=== PATIENT | female | born 2000 | race Two or more races ===

== ENCOUNTER 2024-09-20 08:09 | Emergency (ER) | payer OTHER, SELFPAY ==
[2024-09-20 08:17] VITALS: BP 121/86; PULSE 100; RESP 18; TEMP 36.6; O2SAT 100; BMI 22.0
--- OUTSIDE RECORDS SUMMARY | 2024-09-20 08:48 | XMS_ITS | Encounter Summary ---
Author Organization [facility] Address [id number] [place] [phone] Care Team Providers Care Wharf Helper Name Role Phone Jocelynn Bland DO Primary Care Provider [phone] Reason for Visit * Reason Onset Date Comments URI 09/18/2024 Encounter Details Date Type Department Care Team (Late st Contact Info) Description 09/18/2024 Telephone Internal Medicine - [facility] [address] [place] [address] Jocelynn Bland DO [address] [place] [address] URI Social History Tobacco Use Types Packs/Day Years Used Date Smoking Tobacco: Never Smokeless Tobacco: Never Alcohol Use Standard Drinks/Week Comments No 0 (1 standard drink = 0.6 oz pur e alcohol) Sex and Gender Information Value Date Recorded Sex Assigned at Not on file Gender Identity Not on file Sexual Orientation Not on file Job Start Date Occupation Industry Not on file Not on file Not on file documented as of this encounter Progress Notes * Faviola Pereyra RN - 09/18/2024 2:32 PM EST Spoke to pt-reports of still not feeling well after going to [facility]. on sat 09/16/24 and testing + for the flu;treated with prednisone and inhaler which is not helping much. Pt went to an ext. u.c. today and was told to continue with otc meds like nyquil/dayquil and tyl./sinus medcn. Advised to do home care measures(increased fluid intake/adeq. nutrition-soft foods/rest /lukewarm saltwater gargles and cough drops. Refused an ER f/up as she wants an appt today/halima.Pt ended call abruptly. * Timo Baltazar - 09/18/2024 10:51 AM EST Patient call requires triage: Symptoms patient is presenting: uri symptoms, sore throat, head pressure How long has patient had these symptoms?: almost 1 week For ALL patients calling to schedule any appointment (routine, sick visit, follow up, consult, etc.) in the outpatient setting please ask the following questions: Do you have fever of higher than 101, sore throat with difficulty swallowing or severe shortness ofbreath? no If YES to any of these above symptoms, send a message to triage and do not book. Red dot. If no, an audio or video visit should be booked. Have you had close contact with someone with Coronavirus in the last 14 days? no Have you traveled abroad? no Have you traveled recently to another state outside of [place], [place], [place], [place], [place], [place], [place]? no o If yes, did you quarantine for 14 days or have a negative covid test? no If yes to any of the above, patient is not to be scheduled in office until after 14 day quarantine or negative covid test. If pain or injury related was it due to an accident at work or from a motor vehicle accident? If yes, date of accident/Injury: No If yes, gather 3rd democrat insurance information Third Libertarian Information: PCP: Jocelynn Bland DO Payor: [employer] HEALTH PLAN / Plan: [employer] MEDICAID / Product Type: *No Product type* / documented in this encounter Plan of Treatment Not on file documented as of this encounter Visit Diagnoses Not on filedocumented in this encounter Care Teams Wharf Helper Relationship Specialty Start Date End Date Jocelynn Bland DO [address] [facility] [place] [address] PCP - General 07/05/23 documented as of this encounter
--- OUTSIDE RECORDS SUMMARY | 2024-09-20 08:48 | XMS_ITS | Encounter Summary ---
Author Organization [facility] Address [id number] [place] [phone] Care Team Providers Care Top And Trim Worker Name Role Phone Jocelynn Bland DO Primary Care Provider Reason for Visit * Reason Onset Date Comments Flu Symptoms 09/15/2024 Encounter Details Date Type Department Care Team (Late st Contact Info) Description 09/15/2024 Telephone Internal Medicine - [facility] [address] [place] [address] Jocelynn Bland DO [address] [place] [address] Flu Symptoms Social History Tobacco Use Types Packs/Day Years [...] as of this encounter Progress Notes * Sherlyn Toney RN - 09/15/2024 9:41 AM EST RN called and patient c/o coughing for -3 days, I think I have a sinus infection. Patient deniesfevers, reports coughing up some phlegm. The patient was speaking full clear sentences on the phone and is unable to accommodate the apptoptions available. RN provided her the phone number to call and try and schedule and appt herself. * Willie Sams - 09/15/2024 9:23 AM EST Patient calling back please return call * Faviola Pereyra RN - 09/15/2024 9:05 AM EST Attempted to call few times pt with two tel nos;lvmtcb for phone triage. * Martha Dykes - 09/15/2024 8:56 AM EST Patient call requires triage: Symptoms patient is presenting: flu symptoms, body aches, difficutly breathing, nasal congestion, cough How long has patient had these symptoms?: 2 days For ALL patients calling to schedule any [...] recently to another state outside of [place], [place], [place], [place], [place], [place], [place]? no o If yes, did you quarantine [...] of accident/Injury: No If yes, gather 3rd republican insurance information Third Libertarian Information: not applicable PCP: Jocelynn Bland, DO Payor: [facility] / [facility]: [employer] MEDICAID / Product Type: *No Product type* / documented in this encounter Plan of Treatment Not on file documented as of this encounter Visit Diagnoses Not on filedocumented in this encounter Care Teams Top And Trim Worker Relationship Specialty Start Date End Date Jocelynn Bland DO [address] [place] [address] PCP - General 07/05/23 documented as of this encounter
--- OUTSIDE RECORDS SUMMARY | 2024-09-20 08:49 | XMS_ITS | Encounter Summary ---
Author Organization [facility] Address [address] [place] [phone] Phone Care Team Providers Care Winding Department Supervisor Name Role Phone Unavailable Primary Care Provider Unavailabl e Encounter Details Date Type Department Care Team (Late st Contact Info) Description 04/13/2014 Documentation [facility] Family [facility] [place] [address] Family Medicine, Physician [facility] [place], [place] [id number] Social History Tobacco Use Types Packs/Day Years Used Date Smoking Tobacco: Never Assessed Comments Unknown Sex and Gender Information Value Date Recorded Sex Assigned at Not on file Legal Sex Female 5:24 PM EDT Gender Identity Not on file Sexual Orientation Not on file documented as of this encounter Plan of Treatment Not on file documented as of this encounter Visit Diagnoses Not on filedocumented in this encounter
--- OUTSIDE RECORDS SUMMARY | 2024-09-20 08:49 | XMS_ITS | Clinical Summary ---
Author Organization [employer] Address [address] [facility] [address] [place] [address] Care Team Providers Care Business Practices Supervisor Name Role Phone Unavailable Primary Care Provider Unavailabl e Immunizations Name Administration Dates Next Due DTaP, 5 pertussis antigens 06/29/2002,,1998,08/12,1998 HPV, Quadrivalent 06/09/2012,03/25/2011,02/20/20 10 Hep A, ped/adol, 2 dose 12/23/2015,07/26/2014 Hep B, Adolescent or Pediatric 1998,1997,1998 Hib (PRP-T) 10/16/1999,199 9,1998,06/06 IPV 06/29/2002,200 0,1998,06/06 Influenza injectable quadriv alent IIV4 with preservative 07/26/2014 Influenza injectable quadriv alent preservative free 07/23/2016,04/04/2015 Influenza live intranasal qu adrivalent LIAV4 05/09/2013 Influenza, IIV3, injectable 08/10/2008,0 05/11/2007,07/03/2005,07/09 Influenza, Split (incl. cristiano fied surface antigen) 06/09/2012 MMR 06/29/2002,04/03/1999 Meningococcal MCV4P [id number]-135 12/23/2015,02/20/20 10 Moderna Covid-19 Vaccine 12+ 03/18/2022,12/06/19 21,11/07/2020 Moderna Covid-19 Vaccine 6+ Bivalent 10/06/2022 Tdap 01/20/2021,02/19/2010 Varicella 08/10/2008,04/03/1999 Social History Tobacco Use Types Packs/Day Years Used Date Smoking Tobacco: Never Assessed Comments Unknown Sex and Gender Information Value Date Recorded Sex Assigned at Female 10/06/2022 5:11 PM EST Legal Sex Female 5:04 PM EST Gender Identity Female 10/06/2022 5:11 PM EST Sexual Orientation Straight 10/06/2022 5: 11 PM EST Plan of Treatment Health Maintenance Due Date Last Done Comments Depression Screening 1998 HIV Screening 1998 Lipid Panel 1998 SDOH Screening 1998 Alcohol/Substance Use Screening 2010 Tobacco Screening 2010 Family Planning (PISQ) 2013 Hepatitis C Screening 2016 Pap Smear 2019 COVID-19 Vaccine ( season) 2024 10/06/2022, 03/18/2022, 12/05/2020, Additional history exists Influenza Vaccine (#1) 2024 6, 04/04/2015, 07/26/2014, Additional history exists DTaP/Tdap/Td Vaccines (8 - Td or Tdap) 01/20/2031 01/20/2021, 02/19/2010, 06/29/2002, Additional history exists Zoster Vaccines (1 of 2) 2048 RSV Patients and Patients Aged 60 years or older (1 - 1-dose 75+ series) 2073 Hepatitis B Vaccines Completed 1998, 1998, 1998 HIB Vaccines Completed 10/16/1999, 08/1998, 1998, Additional history exists IPV Vaccines Completed 06/29/2002, 09/1999, 1998, Additional history exists HPV Vaccines Completed 06/09/2012, 03/16, 02/19/2010 Hepatitis A Vaccines Completed 12/23/2015, 07/26/20 14 Meningococcal Vaccine Completed 12/23/2015, 010 Pneumococcal Vaccine: Pediatrics (0 to 5 Years) and At-Risk Patients (6 to 49) Years) Aged Out No longer eligible based on patient's age to complete this topic RSV under 20 months Aged Out No longe r eligible based on patient's age to complete this topic Rotavirus Vaccines Aged Out No longer eligible based on patient's age to complete this topic Insurance [facility]
--- OUTSIDE RECORDS SUMMARY | 2024-09-20 08:49 | XMS_ITS | Clinical Summary ---
Author Organization [facility] Address [address] [place] [phone] Phone Care Team Providers Care Is Consultant Name Role Phone Unavailable Primary Care Provider Unavailabl e Allergies No known active allergies Medications loratadine (CLARITIN) 10 MG tablet Take by mouth. 7 Active fluticasone (FLONASE ALLERGY RELIEF) 50 MCG/ACT nasal spray FLONASE ALLERGY RELIEF; spray 1 - 2 spray by intranasal route every day in each nostril as needed; 50 MCG/ACTUATION; 01/28/2017; Active 7 Active levothyroxine 88 MCG tablet Take 88 mcg by mouth once daily. 11 7 Active OLOPATADINE 0.1 % ophthalmic solutionIndication s:Allergic conjunctivitis of right eye ADMINISTER 1 DROP INTO BOTH EYES 2 (TWO) TIMES A DAY. 5 mL 8 Active loratadine 10 MG tablet 1 tablet by mouth once a day as needed Active CRYSELLE-28 0.3-30 MG-MCG per tablet Take 1 tablet by mouth once daily. 3 8 Active Active Problems Problem Noted Date Diagnosed Date Refused influenza vaccine 07/04/2018 Overview (07/04/2018): Declined: 07/04/18 Assessment & Plan (07/04/2018 2:20 PM EST): Discussed & info given on how deadly 2016 flu season was. Family and /or patient still refused vaccine today Family will return for nurse visit if wishing vaccine Palpitations 07/01/2018 Overview (07/01/2018): Saw cardiology in 2016 and had normal haltor monitor. High risk heterosexual behavior 04/11/2014 Overview (01/18/2018): + GC/Chlamydia 03/2014. HIV neg. Multiple SA partners. 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 Refer to Endo. Started synthyroid 05/2013. Pharmacy review 07/2014 shows inconsistant use of synthyroid - can got 2-3 months btw 30 day supply of meds Assessment & Plan (07/01/2018 1:53 PM EST): Vickie reports that she is now taking her thyroid medication 88mcg 1x per day just for the past week. She last saw endocrine over a year ago and did take her medication - 7 pills one time per week. Will check TSH and FT4 today as well as labs to look for anemia and diabetes. Immunizations Name Administration Dates Next Due DTaP 5 06/29/2002, 0,1998,08/12,1998 HPV, Quadrivalent 06/09/2012,03/25/2011,02/20/20 10 Hep A, ped/adol 12/23/2015,07/26/2014 Hep B, ped/adol 1998,1998,1998 Hib (PRP-T) 10/16/1999, 9,1998,06/06 IPV 06/29/2002, 0,1998,06/06 Influenza Split 06/09/2012 Influenza, injectable, quadrivalent 07/26/2014 Influenza, injectable, quadr ivalent, preservative free 07/23/2016,04/04/2015 Influenza, injectable, trivalent 008,05/11/2007,07/03/2005,07/09 Influenza, intranasal, quadrivalent 05/09/2013 MMR 06/29/2002,04/03/1999 Meningococcal Conj (Menactra) MCV4P 12/23/2015,0 02/19/2010 Tdap 02/19/2010 Varicella 08/10/2008,04/03/1999 Family History Medical History Relation Name Comments Diabetes Father Diabetes Maternal Grandmother Diabetes Mother's Sister Diabetes Paternal Grandmother Relation Name Status Comments Father Father: Asthma Maternal Grandmother Mother Mother: Migrain es, Elevated Cholesterol, Asthma Mother's Sister Other Family history of Diabetes mellitus, Family history of Hyperlipidemia Paternal Grandmother Sister 1 Sister: Asthma, Down Syndrome, down syndrome Sister 2 Alive Sister: Asthma, Down Syndrome, down syndrome Sister 3 Sister: Asthma, Down Syndrome, down syndrome Social History Tobacco Use Types Packs/Day Years Used Date Smoking Tobacco: Never Smokeless Tobacco: Never Comments:Never smoker Alcohol Use Standard Drinks/Week Comments No 0 (1 standard drink = 0.6 oz pur e alcohol) Comments Unknown Sex and Gender Information Value Date Recorded Sex Assigned at Not on file Legal Sex Female 5:24 PM EDT Gender Identity Not on file Sexual Orientation Not on file Last Filed Vital Signs Vital Sign Reading Time Taken Comments Blood Pressure 114/73 08/11/2018 2:37 PM EST Pulse 81 08/11/2018 2:37 PM EST Temperature 36.7 ??C (98.1 ??F) 08/11/2018 2:37 PM ES T Respiratory Rate - - Oxygen Saturation - - Inhaled Oxygen Concentration - - Weight 91.6 kg (202 lb) 08/11/2018 2:37 PM EST Height 159.4 cm (5' 2.75 ) 07/01/2018 1:16 PM ES T Body Mass Index 36.07 07/01/2018 1:16 PM EST Plan of Treatment Health Maintenance Due Date Last Done Comments Consider Men B Vaccine (1 of 2 - Bexsero 2-dose series) 2014 DTaP,Tdap,and Td Vaccines (7 - Td or Tdap) 02/20/2020 02/19/2010, 06/29/2002, 10/16/1999, Additional history exists Influenza Vaccines (#1) 2024 07/23/20 16, 04/04/2015, 07/26/2014, Additional history exists COVID-19 Vaccine ( season) 2024 Hepatitis B Vaccines Completed 1998, 1998, 1998 HIB Vaccines Completed 10/16/1999, 08/1998, 1998, Additional history exists IPV Vaccines Completed 06/29/2002, 09/1999, 1998, Additional history exists MMR Vaccines Completed 06/29/2002, 04/03/1999 Varicella Vaccines Completed 08/10/2008, 04/03/1999 HPV Vaccines Completed 06/09/2012, 03/16, 02/19/2010 Hepatitis A Vaccines Completed 12/23/2015, 07/26/20 14 Meningococcal Vaccine Completed 12/23/2015, 010 Men B Vaccine Aged Out No longer elig ible based on patient's age to complete this topic Pneumococcal Vaccine Aged Out No long er eligible based on patient's age to complete this topic Procedures * Due to [place] [employer] law, this organization might not be sharing sensitive test results. Procedure Name Priority Date/Time Associated Diagnosis Comments CHLAMYDIA AND GONORRHEA, AMPLIFIED Routine 07/04/2018 2:28 PM EST Vaginal discharge from Last 3 Months or Most Recently Relevant to Health Maintenance Results * Due to [place] [employer] law, this organization might not be sharing sensitive test results. * Chlamydia and Gonorrhoea, Amplified (07/04/2018 2:28 PM EST) Chlamydia Trachomatis, DNA Probe NEGATIVE (NEG) [facility] Comment: No Chlamydia Trachomatis RNA detected in this patient's sample ? (REFERENCE RANGE/NORMAL VALUE: NOT DETECTED) ? Note: This test uses fbi sharpshooter- mediated amplification method to detect rRNA from C. Trachomatis URINE GC AMP PROBE NEGATIVE (NEG) [facility] Comment: No Neisseria Gonorrhoeae RNA detected in this patient's sample ? (REFERENCE RANGE/NORMAL VALUE: NOT DETECTED) ? NOTE: This test uses fbi sharpshooter-mediated amplification method to detect rRNA from N.Gonorrhoeae. A negative result does not preclude infection. In the case of a negative urine result, testing of an endocervical(female) or urethral (male) specimen is recommended if there is high clinical suspicion of infection. Due to very high sensitivity of Nucleic Acid Amplification Test, false positive results may occur. Therefore, specimen handling is extremely important. In patients in whom the disease is unlikely, additional sample for testing should be considered after an initial positive result. The performance characteristics of this test have not been evaluated in children. The Aptima Combo2 assay is not intended for the evaluation of suspected sexual abuse or for other medico-legal indications. The ordering provider should assess if the patient had consensual sex without risk of sexual abuse. Consult the [facility] if needed. Contact phone number . Therapeutic failure or success cannot be determined with the Aptima Combo2 assay since nucleic acid may persist following appropriate antimicrobial therapy. The Centers for Disease Control and Prevention (CDC) recommends confirmatory retesting using culture or a different nucleic acid amplification test when positive results occur, if indicated. Testing performed or reported by [facility], a Service of [facility], [address] [place] [address] [place] [address] CLIA [id number] Yvette Roy MD, Agriculture Teacher 07/04/2018 2:28 PM EST 07/04/2018 9:34 PM EST us Sue Stokes MD LAB MICROBIOLOGY - GENERAL ORDER ION Final Result [facility] from Last 3 Months or Most Recently Relevant to Health Maintenance
--- OUTSIDE RECORDS SUMMARY | 2024-09-20 08:49 | XMS_ITS | Encounter Summary ---
Author Organization [facility] Address [address] [place] [phone] Phone Care Team Providers Care Order Dispatcher Name Role Phone Unavailable Primary Care Provider Unavailabl e Encounter Details Date Type Department Care Team (Late st Contact Info) Description 04/17/2014 Documentation [facility] [place] [address] Family Medicine, Phys[facility] [place], [place] [id number] Social History Tobacco Use Types Packs/Day Years [...]
--- OUTSIDE RECORDS SUMMARY | 2024-09-20 08:49 | XMS_ITS | Encounter Summary ---
Author Organization [facility] Address [address] [place] [phone] Phone Care Team Providers Care Extruder Operator Helper Name Role Phone Unavailable Primary Care Provider Unavailabl e Encounter Details Date Type Department Care Team (Late st Contact Info) Description 04/23/2014 Documentation [facility] [place] [address] Family Medicine, Physician [facility] [place] [id number] Social History Tobacco Use Types Packs/Day Years [...]
--- OUTSIDE RECORDS SUMMARY | 2024-09-20 08:49 | XMS_ITS | Clinical Summary ---
Author Organization [address] Building Address [address] [place] [phone] Phone Care Team Providers Care Restaurant District Manager Name Role Phone Elizabeth Blandmantracey SALES Primary Care Provider [phone] Allergies Active Allergy Reactions Criticality Noted Date Comments Aspirin 07/27/2024 Other 08/25/2018 Medications Medication Sig Dispensed Refills Start Date End Date Status sertraline (ZOLOFT) 100 mg tablet Take 1 tablet (100 mg total) by mouth 1 (one) time each day. Active acetaminophen (TYLENOL) 500 mg tablet 1 tablet (500 mg total). Active cyclobenzaprine (FLEXERIL) 10 mg tablet Take 1 tablet (10 mg total) by mouth at bedtime as needed for muscle spasms. 30 tablet 07/27/2024 03/24/2025 Active naproxen (NAPROSYN) 500 mg tablet Take 1 tablet (500 mg total) by mouth 2 (two) times a day with meals. 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 Last Assessment & Plan: The sinus tachycardia appears chronic per her history. She has no significant symptoms besides knowing rapid heart rate. I will arrange echocardiogram to make sure her cardiac function remains normal. Will be helpful if I can get her previous cardiology office record. I will hold off medications for now. If absolutely necessary, we could start low-dose labetalol due to her relatively lower blood pressures. Bandemia 12/31/2020 Peptic ulcer disease 11/17/2020 Overview (07/25/2024): No NSAIDS Overweight (BMI 25.0-29.9) 11/01/2020 Dyslipidemia 12/04/2019 Gastritis 12/04/2019 Migraine 12/04/2019 Overview (07/25/2024): Dr. Francois Amytriptyline 50mg daily, follows with neurologist ADD (attention deficit disorder) 08/25/2018 Allergic rhinitis 08/25/2018 Bipolar 2 disorder 08/25/2018 Overview (07/25/2024): Zoloft 50mg daily. Last Assessment & Plan: Mood is good. Continue Zoloft 50mg daily. Hypothyroidism 08/25/2018 Overview (07/25/2024): Regino's Thyroiditis Q trimester TSH with reflex -10/30/20 TSH 1.82 Growth US at 32 weeks Last Assessment & Plan: 10/30/20 TSH 1.82 Continue Synthroid 88mcg Palpitations 07/01/2018 Overview (07/25/2024): Saw cardiology in 2015 and had normal haltor monitor. Regino's thyroiditis 05/09/2013 Overview (07/25/2024): 04/2013 - FT4 0.65 TSH 14. Refer to Endo. Started synthyroid 05/2013. Pharmacy review 07/2014 shows inconsistant use of synthyroid - can got 2-3 months btw 30 day supply of meds Encounters Date Type Department Care Team Description 09/18/2024 Telephone [facility] - [facility] [address] [place] [address] Edwina JocelynnDO URI 09/15/2024 [facility] [address] [facility] [place] [address] Edwina Jocelynn, DO Flu Symptoms 07/27/2024 10:38 AM EST - 07/27/2024 11:59 PM EST Hospital [facility] [address] [facility] [place] [address] Acute midline low back pain without sciatica Discharge Disposition: Home or Self Care 07/27/2024 10:15 AM EST [facility] [place] [address] Fernando Hodges PA Acute midline low back pain without sciatica (Primary Dx) 07/24/2024 Telephone Internal Medicine - [address] [place] [address] Edwina Jocelynn, DO Back Pain from Last 3 Months Immunizations Name Administration Dates Next Due DTaP (Infanrix) 6wks to less than 7yo ,10/16/1999,1998,08/12,1998 DTaP 5 pertussis antigens, D iptheria Tetanus acellular pertussis (Daptacel) 6wks to less than 7yo 06/29/2002,10/16/1999,1998,08/12,1998 ZDdT-CYC-QVC (Pentacel) 2mo to less than 5yo 10/16/1999,1998,1998,06/06 HPV, Quadrivalent 06/09/2012,03/25/2011,02/20/20 10 Hepatitis A Pediatric (Havri x; Vaqta) 12mo to less than 19yo 12/23/2015,07/26/2014 Hepatitis B Pediatric (Enger ix B; Recombivax HB) to less than 20 yo 1998,1998,1998 HiB PRP-T conjugate (Acthib, Hiberix) 6wks and older 10/16/1999,1998,1998,06/06 IPV Inactivated polio (Ipol) 6wks and older 06/29/2002,10/16/1999,1998,06/06 Influenza Quadravalent, MDCK , 0.5ml, preservative free (Flucelvax) 6mo and older 06/16/2022,10/28/2020 Influenza Quadrivalent, 0.5m l, preservative free (Fluarix; FluLaval; Fluzone) ages 6mo and older (Afluria) 3yo and older 07/23/2016,04/04/2015 Influenza Quadrivalent, with preservative (Fluzone; Afluria) 6mo and older 07/26/2014 Influenza Split 06/09/2012 Influenza trivalent, 0.5mL, preservative free (Fluarix; FluLaval; Fluzone) ages 6mo and older (Afluria) 3 years and older 05/17/2019 Influenza trivalent, with pr eservative (Fluzone; Afluria) 6mo and older 08/10/2008,05/11/2007,07/03/2005,07/09 Influenza, Unspecified 05/17/2019 Influenza, live, intranasal, quadrivalent (FluMist) 2yo to less than 50yo 05/09/2013 MMR, measles mumps and rubel la Live (Priorix; M-M-R II) 12mo and older 06/29/2002,04/03/1999 MMRV, measles mumps rubella and varicella live (Proquad) 4yo to less than 7yo 06/29/2002,04/03/1999 Meningococcal MCV4P 12/23/2015,02/19/2010 Tdap Tetanus diptheria acell ular pertussis (Boostrix; Adacel) 7yo and older 01/20/2021,02/19/2010 Varicella live (Varivax) 12m o and older 08/10/2008,04/03/1999 Surgical History Surgery Date Site/Laterality Comments MULTIPLE TOOTH EXTRACTIONS PROCEDURE: HISTORICAL DENTAL EXTRACTION SECTION 03/06/2021 PROCEDURE: HISTORICAL DELIVERY Medical History Medical History Date Comments STI (sexually transmitted infection) 12/05/2018 DX:STI (sexually transmitted infection); COMMENT: GC/Chalmydia 03/2014 treated ADD (attention deficit disorder) 08/25/2018 DX:ADD (attention deficit disorder) Allergic rhinitis 08/25/2018 DX:Allergic rh initis Bipolar 2 disorder (CMS/HCC) 08/25/2018 DX: Bipolar 2 disorder (HCC) Cyst of ovary 11/01/2018 DX:Cyst of ovary Hypothyroidism 08/25/2018 DX:Hypothyroidis m; COMMENT: Regino's Thyroiditis Hx of migraines 2018 DX:Hx of migrain es; COMMENT: previously taking amytriptaline for migraines, recently increased from 30-50mg. Trichomonal infection 03/01/2019 DX:Trichom onal infection Twin 10/28/2020 DX:Twin pregnanc y; COMMENT: Early US for chorionicity - MFM US 11/04 demonstrated Thayer-Di twins with selective IUGR. Patient has MFM consult scheduled, likely transfer following consult Baseline (<20 weeks) HELLP labs ASA 81 mg for pre-eclampsia prevention - contraindicated 2/2 hx Peptic ulcer disease Level 2 anatomy US (scheduled) Weekly fluid check Growth Q 4 weeks after anatomy US No additional* Cyst of ovary 11/01/2018 DX:Cyst of ovary Family History Medical History Relation Name Comments Other: Hyperlipidemia Father diabet es,asthma Arthritis Maternal Grandmother Asthma Mother Hyperlipidemia, Migraines Kidney failure Paternal Grandfather Diabetes Paternal Grandmother Other: Down's Syndrome Sister Asthm a, hypthyroidism Breast cancer Neg Hx Colon cancer Neg Hx Ovarian cancer Neg Hx Relation Name Status Comments Father Alive Maternal Grandfather Alive Maternal Grandmother Alive Mother Alive Paternal Grandfather Paternal Grandmother Sister Alive Social History Tobacco Use Types Packs/Day Years Used Date Smoking Tobacco: Never Smokeless Tobacco: Never Tobacco Cessation:Counseling Given: Not Answered Alcohol Use Standard Drinks/Week Comments No 0 (1 standard drink = 0.6 oz pur e alcohol) Sex and Gender Information Value Date Recorded Sex Assigned at Not on file Gender Identity Not on file Sexual Orientation Not on file Job Start Date Occupation Industry Not on file Not on file Not on file Obstetrics History Last Filed Vital Signs Vital Sign Reading Time Taken Comments Blood Pressure 102/54 07/27/2024 10:30 AM EST Pulse 62 07/27/2024 10:22 AM EST Temperature - - Respiratory Rate 16 07/27/2024 10:22 AM EST Oxygen Saturation - - Inhaled Oxygen Concentration - - Weight 59 kg (130 lb) 07/27/2024 10:22 AM EST Height 157.5 cm (5' 2 ) 01/06/2024 10:50 AM EDT Body Mass Index 23.78 01/06/2024 10:50 AM EDT Plan of Treatment Health Maintenance Due Date Last Done Comments Depression Screening 07/19/2022 HIV Screening 07/19/2022 Hepatitis C Screening 07/19/2022 Social Influencers of Health Screening 07/19/2022 COVID-19 Vaccine ( season) 2024 10/06/2022, 03/18/2022, 12/05/2020, Additional history exists Influenza Vaccine (#1) 2024 , 06/16/2022, 10/28/2020, Additional history exists Cervical Cancer Screening: Pap Smear 06/17/2025 06/17/2022, 08/15/2019 Cholesterol Screening (Lipid Panel) 06/16/2027 06/16/2022 DTaP,Tdap,and Td Vaccines (9 - Td or Tdap) 08/03/2033 08/03/2023, 01/20/2021, 02/19/2010, Additional history exists Hepatitis B Vaccines Completed 1998, 1998, 1998 HIB Vaccines Completed 10/16/1999, 09/1999, 1998, Additional history exists IPV Vaccines Completed 06/29/2002, 09/1999, 10/16/1999, Additional history exists MMR Vaccines Completed 06/29/2002, 06/16, 04/03/1999, Additional history exists Varicella Vaccines Completed 08/10/2008, 1 08/29/2001, 04/03/1999, Additional history exists HPV Vaccines Completed 06/09/2012, 03/16, 02/19/2010 Hepatitis A Vaccines Completed 12/23/2015, 07/26/20 14 Meningococcal ACWY Vaccine Completed 12/23/2015, Pneumococcal Vaccine: Pediatrics (0 to 5 Years) and At-Risk Patients (6 to 64 Years) Aged Out No longer eligible based on patient's age to complete this topic RSV Immunization Patients Under 20 months Aged Out No longer eligible based on patient's age to complete this topic Procedures Procedure Name Priority Date/Time Associated Diagnosis Comments XR LUMBAR SPINE 4+ VIEWS Routine 07/27/2024 10:47 AM EST Acute midline low back pain without sciatica PAP SMEAR Routine 06/17/2022 LIPID PANEL Routine 06/16/2022 from Last 3 Months or Most Recently Relevant to Health Maintenance Results * XR Lumbar Spine 4+ Views (07/27/2024 10:47 AM EST) Anatomical Region Laterality Modality Spine, L-spine Radiographic Emily ging 07/27/2024 4:45 PM EST Narrative 07/27/2024 4:46 PM EST Lumbosacral spine, 4 views. History back pain. Vertebral bodies and disc spaces are maintained in height. There are mild hypertrophic changes in the facet joints at L4-5 and L5-S1 levels. No fractures, dislocations or destructive lesions. CONCLUSIONS: Mild degenerative changes as detailed. -------- FINAL REPORT -------- Dictated By: Loly Lazaro Dictated Date: 07/27/2024 16:45 ET Assigned Physician: Loly Lazaro Reviewed and Electronically Signed By: Loly Lazaro Signed Date: 07/27/2024 16:46 ET Workstation ID: [id number] Transcribed By: Self Edit Transcribed Date: 07/27/2024 16:45 ET Procedure Note Loly Lazaro MD - 07/27/2024 Lumbosacral spine, 4 views. History back pain. Vertebral bodies and disc spaces are maintained in height. There are mildhypertrophic changes in the facet joints at L4-5 and L5-S1 levels. Nofractures, dislocations or destructive lesions. CONCLUSIONS: Mild degenerative changes as detailed. -------- FINAL REPORT -------- Dictated By: Loly Lazaro Dictated Date: 07/27/2024 16:45 ET Assigned Physician: Loly Lazaro Reviewed and Electronically Signed By: Loly Lazaro Signed Date: 07/27/2024 16:46 ET Workstation ID: [id number] Transcribed By: Self Edit Transcribed Date: 07/27/2024 16:45 ET Fernando Hodges PA IMG XR PROCEDUR ES * Pap smear (06/17/2022) 06/17/2022 Narrative HISTORICAL TESTING LAB RESULTING AGENCY - 06/22/2022 10:36 AM EST [id number] THINPREP PAP, IMAGED: NEGATIVE FOR SQUAMOUS INTRAEPITHELIAL LESION AND MALIGNANCY . SRINIVASAN ADAMS(ASCP) (CASE ELECTRONICALLY SIGNED 06 21 2022) ADEQUACY: SATISFACTORY ENDOCERVICAL/TRANSFORMATION ZONE COMPONENT PRESENT. SOURCE: THINPREP PAP HPV IF ASCUS, CERVICAL, IMAGED CLINICAL INFORMATION: HPV IF DIAGNOSIS OF ASCUS. HORMONES, PAP HX NEGATIVE, 2019, LMP 06/14/2022, [Z01.419] [facility] LAB CYTOLOGY OR DERABLES HISTORICAL TESTING LAB RESULTING AGENCY * Lipid panel (06/16/2022) LDL/HDL Ratio 6 Triglycerides 156 mg/dL Cholesterol 192 mg/dL HDL 35 mg/dL LDL Cholesterol 126 mg/dL Blood Venous blood specimen / Unknown Historical Provider LAB BLOOD ORDERAB LES from Last 3 Months or Most Recently Relevant to Health Maintenance Care Teams Restaurant District Manager Relationship Specialty Start Date End Date Jocelynn Bland DO [facility] [place] [address] PCP - General 07/05/23
--- OUTSIDE RECORDS SUMMARY | 2024-09-20 08:49 | XMS_ITS | Encounter Summary ---
Author Organization [facility] Address [address] [place] [phone] Phone Care Team Providers Care Ophthalmologist Name Role Phone Unavailable Primary Care Provider Unavailabl e Encounter Details Date Type Department Care Team (Late st Contact Info) Description 12/10/2016 [place]ation [facility] [place] [facility] [place] [address] Family Medicine, Physician [facility] [place] [address] Social History Tobacco Use Types Packs/Day Years [...]
--- OUTSIDE RECORDS SUMMARY | 2024-09-20 08:49 | XMS_ITS | Encounter Summary ---
Author Organization [facility] Address [address] [place] [phone] Phone Care Team Providers Care Automotive Detailer Name Role Phone Unavailable Primary Care Provider Unavailabl e Encounter Details Date Type Department Care Team (Late st Contact Info) Description 01/28/2017 [place]ation [facility] [place] [facility] [place] [address] Family Medicine, Physician [facility] [place] [address] Social History Tobacco Use Types Packs/Day Years Used Date Smoking Tobacco: Never Comments:Never smoker Comments Unknown Sex and Gender Information Value Date Recorded Sex Assigned at Not on file Legal Sex Female 5:24 PM EDT Gender Identity Not on file Sexual Orientation Not on file documented as of this encounter Plan of Treatment Not on file documented as of this encounter Visit Diagnoses Not on filedocumented in this encounter
--- OUTSIDE RECORDS SUMMARY | 2024-09-20 08:49 | XMS_ITS | Encounter Summary ---
Author Organization [facility] Address [address] [place] [phone] Phone Care Team Providers Care Chemical Process Engineer Name Role Phone Unavailable Primary Care Provider Unavailabl e Encounter Details Date Type Department Care Team (Late st Contact Info) Description 10/28/2016 Documentation [facility] [place] [facility] [place] [address] Family Medicine, Physician [facility] [place] [address] Social History Tobacco Use Types Packs/Day Years [...]
--- OUTSIDE RECORDS SUMMARY | 2024-09-20 08:49 | XMS_ITS | Encounter Summary ---
Author Organization [facility] Address [address] [place] [address] Phone Care Team Providers Care Plant Engineering Supervisor Name Role Phone Unavailable Primary Care Provider Unavailabl e Encounter Details Date Type Department Care Team (Late st Contact Info) Description 05/05/2013 [place]ation [facility] [place] [facility] [place] [address] Family Medicine, Physician [facility] [place], [place] [address] Social History Tobacco Use Types Packs/Day Years [...]
--- OUTSIDE RECORDS SUMMARY | 2024-09-20 08:49 | XMS_ITS | Encounter Summary ---
Author Organization [facility] Address [address] [place] [phone] Phone Care Team Providers Care Water Hauler Name Role Phone Unavailable Primary Care Provider Unavailabl e Encounter Details Date Type Department Care Team (Late st Contact Info) Description 01/28/2017 [place] [facility] [place] [facility] [place] [address] Family Medicine, Physician [facility] [place] [address] Social History Tobacco Use Types Packs/Day Years [...]
--- OUTSIDE RECORDS SUMMARY | 2024-09-20 08:49 | XMS_ITS | Encounter Summary ---
Author Organization [facility] Address [address] [place] [phone] Phone Care Team Providers Care Data Management Specialist Name Role Phone Unavailable Primary Care Provider Unavailabl e Encounter Details Date Type Department Care Team (Late st Contact Info) Description 2017 Conversion Encounter [facility] - [address] [address] Social History Tobacco Use Types Packs/Day Years [...]
--- OUTSIDE RECORDS SUMMARY | 2024-09-20 08:49 | XMS_ITS | Encounter Summary ---
Author Organization [facility] Address [address] [place] [phone] Phone Care Team Providers Care Auto Body Estimator Name Role Phone Unavailable Primary Care Provider Unavailabl e Encounter Details Date Type Department Care Team (Late st Contact Info) Description 12/17/[address] [facility] [place] [facility] [place] [address] Family Medicine, Physician [facility] [place], [place] [id number] Social History Tobacco Use Types Packs/Day Years [...]
[2024-09-20 09:11] VITALS: BP 133/83; PULSE 89; RESP 18; TEMP 36.8; O2SAT 99
--- NOTE | 2024-09-20 09:46 | ED_ITS ---
HPI - General Adult General Chief complaint: Ear Problems Stated complaint: ear problems Time Seen by Provider: 09/20/24 09:46 History of Present Illness ED Provider: Sanam LIU narrative: The patient has had flu-like symptoms for about a week. Last night she de veloped a new problem with right ear pain and a sense of popping in her right ear. She says that she has had ear infections in the past and that this feels like an ear infection. She is very certain she is not . She says that she has had stomach problems with NSAIDs in the past. Related Data Previous Rx's ?Medication ?Instructions ?Recorded amoxicillin 875 mg-potassium 1 tab PO BID #19 tabs 09/20/24 clavulanate 125 mg tablet ibuprofen 400 mg tablet 400 mg PO Q6H PRN pain #14 tabs 09/20/24 Allergies Allergy/AdvReac Type Severity Reaction Status Date / Time aspirin Allergy Abdominal Verified 09/20/24 08:19 Pain Review of Systems Review of Systems: Yes all other systems are reviewed and are negative [facility] Social History Social History Smoked in Last 30 Days: No Use of substances other than those prescribed or required for medical reasons: No Advance Directives: No Advance Directives Information Provided: Yes Do you have a plan to hurt others: No Plan Patient : No Physical Exam ED Vital Signs: Vital Signs - 24 hr 09/20/24 08:17 09/20/24 09:11 09/20/24 10:19 Temperature 97.9 F 98.2 F 98.2 F Pulse Rate 100 89 89 Respiratory Rate 18 18 18 Blood Pressure 121/86 133/83 133/83 Pulse Oximetry 100 99 99 Oxygen Delivery Method Room Air Room Air Room Air BMI result Body Mass Index 22.0 Const Other: The patient is awake and alert. She is pleasant and cooperative. He looks mildly uncomfortable Orientation/consciousness: patient oriented x3 HENSD Other: Face is unremarkable. The pharynx is normal. Left tympanic membrane is normal. Right tympanic membrane is swollen and red. Eyes General: appearance normal, both eyes and all related structures Neck Neck: Yes full ROM Resp Effort & Inspection: normal respiratory effort Auscultation: clear to auscultation bilaterally Cardio Rate: regular rate Rhythm: regular rhythm Heart sounds: S1 normal heart sound present and S2 normal heart sound present Neuro General: patient oriented x3, gait normal, tone normal and moves all extremities Extrem General: Yes no pedal edema Medications Administered Discontinued Medications Generic Name Dose Route Start Last Admin Trade Name Cony PRN Reason Stop Dose Admin Acetaminophen 975 mg 09/20/24 10:09/20/24 10:15 Acetaminophen 325 Mg Tablet PO 09/20/24 10:06 975 mg ONCE ONE Administration Amoxicillin/Clavulanate Potassium 875 mg 09/20/24 10:05 09/20/24 10:15 Amoxicillin/Potassium Clav 875 Mg Tablet PO 09/20/24 10:06 875 mg ONCE ONE Administration Ketorolac Tromethamine 30 mg 09/20/24 10:05 09/20/24 10:14 Ketorolac Tromethamine 30 Mg/Ml Vial IM 09/20/24 10:06 30 mg ONCE ONE Administration Medical Decision Making Medical Decision Making [facility] Narrative: Clinically the patient has an obvious right otitis media. This was probably the result of a preceding viral infection. She will be started on Augmentin. Discharge Plan Discharge Clinical Impression: Acute right otitis media Patient Disposition: Home, Self-Care Instructions: Ear Infection (ED) Additional Instructions: You have an obvious infection in your right middle ear. This is called an otitis media. Please take the antibiotic, amoxicillin/clavulanate (also known as Augmentin) 2 times a day until done. I have sent a prescription for some lower dose ibuprofen that you may use as needed for pain. I think as long as you do not use this for very long it probably will not bother you too much. You may also use acetaminophen (Tylenol) as needed for pain. Please follow up with your regular doctor next week. Return to the emergency room if significantly worse. Prescriptions: New amoxicillin-pot clavulanate 875-125 mg tablet 1 tab PO BID Qty: 19 0RF ibuprofen 400 mg tablet 400 mg PO Q6H PRN (Reason: pain) Qty: 14 0RF Referrals: Jocelynn Bland DO [Primary Care Provider] - (Right otitis media) Interventions: ED Discharge Assessment Last Done: 09/20/24 10:19 Discharge Date/Time: 09/20/24 10:20 Print Language: Bangladeshi
[2024-09-20] MEDS: Ketorolac Tromethamine 30 MG/ML VIAL IM (10:14)
[2024-09-20] MEDS: Amoxicillin/Potassium Clav 875 MG TABLET PO (10:15)
[2024-09-20] MEDS: Acetaminophen 325 MG TABLET 975 MG PO (10:15)
[2024-09-20 10:19] VITALS: BP 133/83; PULSE 89; RESP 18; TEMP 36.8; O2SAT 99
== END 2024-09-20 10:20 | disposition home or self-care (01) ==
PROVIDERS: Emergency Provider Emergency Medicine; PCP Internal Medicine
DX: H66.91 Otitis media, unspecified, right ear (principal); H92.01 Otalgia, right ear
CPT/HCPCS: 96372; 99284; J1885